=== PATIENT | male | born 1955 | race Caucasian/White ===

== ENCOUNTER 2016-12-23 14:19 | Emergency (ER) | payer OTHER ==
[~2016-12-23] VITALS: Ht 190.5 cm; Wt 96.0 kg
[2016-12-23] MEDS ORDERED: HYDROcodone/APAP 5/325 TABLET PO PRN (15:00)
[2016-12-23] MEDS ORDERED: HYDROcodone/APAP 5/325 TABLET ONE (15:06)
[2016-12-23 16:40] VITALS: BP 129/78
== END 2016-12-23 16:42 | disposition home or self-care (01) ==
LOC: ED 15:34
DX: M25.552 Pain in left hip (principal)

== ENCOUNTER → 2017-01-13 | Outpatient (CLI) | payer OTHER ==
[2017-01-13 13:04] LABS: BLOOD UREA NITROGEN 18 mg/dL (7-18)
[2017-01-13 13:07] LABS: ASPARTATE AMINO TRANSFERASE 25 U/L (15-37)
[2017-01-14 13:06] LABS: PSA SERIAL MONITOR 1.1 ng/mL (0.0-4.0)
== END | disposition home or self-care (01) ==
LOC: CFH 09:53
PROVIDERS: ATTEND Internal Medicine
DX: E78.2 Mixed hyperlipidemia (principal); K21.9 Gastro-esophageal reflux disease without esophagitis; L98.9 Disorder of the skin and subcutaneous tissue, unspecified; M54.2 Cervicalgia; M54.32 Sciatica, left side
CPT/HCPCS: 36415; 80053; 80061; 81003; 84153; 85027; G0103